=== PATIENT | male | born 1930 | race Caucasian/White ===

== ENCOUNTER 2021-03-29 22:38 | Inpatient (IN) ==
[2021-03-29] MEDS ORDERED: IOPAMIDOL 100 ML BOTTLE IV ONE (22:39)
[2021-03-29] MEDS ORDERED: 0.9 % SODIUM CHLORIDE 1,000 ML IV ONE (22:48)
[2021-03-29] MEDS ORDERED: ONDANSETRON 4 MG/2 ML VIAL IV ONE (22:49)
[2021-03-29 23:53] LABS: Basophils # (Auto) 0.01 K/mcL (0.00-0.20); Basophils % (Auto) 0.1 % (0.0-2.0); Eosinophils # (Auto) 0 K/mcL (0.00-0.70); Eosinophils % (Auto) 0 % (0.0-7.0); Hemoglobin 11.5 g/dL (13.5-16.5); Lymphocytes # (Auto) 6.77 K/mcL (1.50-4.80); Lymphocytes % (Auto) 61.3 % (15.0-49.0); Mean Cell Volume 86.3 fL (80.0-100.0); Mean Corpuscular HGB Conc 31.9 g/dL (31.0-36.0); Mean Platelet Volume 9.8 fL (7.4-10.4); Monocytes # (Auto) 0.25 K/mcL (0.10-0.90); Monocytes % (Auto) 2.3 % (1.0-12.0); Neutrophils % (Auto) 36.3 % (38.0-78.0); Platelet Count 90 K/mcL (140-440); RBC 4.17 M/mcL (4.50-5.90); Red Cell Distribution Width 17.1 % (11.5-14.5)
--- NOTE | 2021-03-30 00:12 | Emergency Department Note ---
HPI General Chief complaint: Nausea/Vomiting/Diarrhea Stated complaint: n/v Time Seen by Provider: 03/29/21 22:46 Source: patient Mode of arrival: ambulatory Limitations: no limitations History of Present Illness HPI Narrative: Narrative: 89-year-old male presents the emergency department left lower quadrant abdominal pain. Says started today and slowly worsened. 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 He states that the belly pain just seems to be getting worse. Has had diarrhea but he says he takes care of it with Imodium. He says that he has had some nausea but no vomiting. Denies any fevers. States never had this pain like this before. Describing is 8 out of 10 sharp stabbing pain nonradiating mainly in the left lower quadrant. Related Data Allergies Allergy/AdvReac Type Severity Reaction Status Date / Time No Known Drug Allergies Allergy Unverified 03/29/21 22:39 Review of Systems ROS ROS Narrative: Narrative: All systems ED: reviewed and negative except as stated. PFSH Narrative Patient History Narrative: Narrative: Medical/Surgical/Family History All Active Problems (Updated 03/30/21 @ 00:37 by Chadwick Griffiths DO) SBO (small bowel obstruction) (Acute) Social History Smoking Status: Former smoker Exam Narrative Narrative: Narrative: Vital signs noted General: Awake. Alert. No distress. Skin: Warm. Dry. No rash. HEENT: NCAT. PERRL. EOMI. No conjunctivitis. No nystagmus. No pharyngitis. Membranes moist. Neck: No PTP. Good ROM. No meningeal signs. No stridor. No thyromegaly. No JVD. Cardiovascular: RRR. No murmur. No rubs. No gallops. Respiratory: No respiratory distress. Breath sounds equal. Lungs clear. Gastrointestinal: Abdomen soft. Mild pain to the left lower quadrant on palpation. No distention. Normal bowel sounds. No palpable organomegaly or arturo s. Back: No deformity. No CVAT. Musculoskeletal: No tenderness. No swelling. No erythema. No edema. Good peripheral pulses x 4 Lymphatic: No palpable adenopathy. General Limitations: no limitations Course Vital Signs Vital signs: Vital Signs Temperature 97 F 03/29/21 22:39 Pulse Rate 10 L 03/29/21 22:39 Respiratory Rate 18 03/29/21 22:39 Blood Pressure 142/71 03/29/21 22:39 Pulse Oximetry (%) 95 03/29/21 22:39 Temperature 97 F 03/29/21 22:39 Pulse Rate 58 L 03/30/21 00:08 Respiratory Rate 18 03/29/21 22:39 Blood Pressure 122/68 03/29/21 23:01 Pulse Oximetry (%) 97 03/30/21 00:08 MDM MDM Narrative Medical decision making narrative: Narrative: Patient presents with mild left lower quadrant abdominal pain. He is currently on immunotherapy. So he is immunosuppressed. He denies any fevers or chills. Worried about possible acute pathology abdomen possibly cancer so we will going get a CAT scan of the abdomen pelvis as well as basic labs. Disposition will be pending results. General normal with a normal white blood cell count. CT scan showed multiple distended gas and fluid filled loops of small bowel in the mid to lower abdomen so there measuring up to 3-1/2 cm. This is a partial to complete small bowel obstruction the distal small bowel is decompressed. There is multiple foci of free air in the upper abdomen although the source for free air is not determined. There is a moderate amount of fecal debris in the distal colon. I did speak with the surgeon Dr. Garnica who does not think patient needs emergent surgery which I do also agree with but he does agree the patient needs to be watched in the hospital so he recommend admission starting patient on Zosyn for the possible free air in the abdomen recommended against an NG tube at this time IV fluids n.p.o. status and he will see the patient in the morning. I do think this is reasonable patient has been admitted in stable condition to Dr. Garnica to the floor. Lab Data Result diagrams: 03/29/21 22:53 03/29/21 22:53 Labs: Lab Results 03/29/21 03/29/21 Range/Units 22:53 22:53 WBC 11.0 (4.5-11.0) K/mcL RBC 4.17 L (4.50-5.90) M/mcL Hgb 11.5 L (13.5-16.5) g/dL Hct 36.0 L (41.0-55.0) % MCV 86.3 (80.0-100.0) fL MCH 27.6 (26.0-34.0) pg MCHC 31.9 (31.0-36.0) g/dL RDW 17.1 H (11.5-14.5) % Plt Count 90 L (140-440) K/mcL MPV 9.8 (7.4-10.4) fL Neut % (Auto) 36.3 L (38.0-78.0) % Lymph % (Auto) 61.3 H (15.0-49.0) % [place] % (Auto) 2.3 (1.0-12.0) % Eos % (Auto) 0 (0.0-7.0) % Baso % (Auto) 0.1 (0.0-2.0) % Lymph # (Auto) 6.77 H (1.50-4.80) K/mcL [place] # (Auto) 0.25 (0.10-0.90) K/mcL Eos # (Auto) 0 (0.00-0.70) K/mcL Baso # (Auto) 0.01 (0.00-0.20) K/mcL Absolute Neutrophils 4.01 (1.80-8.00) K/mcL Sodium 140 (133-145) mmol/L Potassium 4.1 (3.3-5.1) mmol/L Chloride 102 (96-108) mmol/L Carbon Dioxide 27 (22-30) mmol/L Anion Gap 11.0 (8.0-16.0) BUN 16 (8-23) mg/dL Creatinine 1.1 (0.7-1.2) mg/dL POC Creatinine 1.0 (0.6-1.2) mg/dL GFR Calculation 59 Glucose 184 H (70-105) mg/dL Calcium 9.0 (8.6-10.4) mg/dL Total Bilirubin 0.3 (0.1-1.0) mg/dL AST 18 (<40) U/L ALT 13 (<40) U/L Alkaline Phosphatase 102 (39-117) U/L Total Protein 6.3 (5.9-8.4) gm/dL Albumin 3.8 (3.2-5.2) gm/dL Globulin 2.5 (2.2-3.7) gm/dL Albumin/Globulin Ratio 1.5 (1.0-2.3) Discharge Plan Patient/Caregiver Discharge Instructions Pt seen by WEB ASSISTANT/PA only: No Clinical Impression: SBO (small bowel obstruction) Activity: increase activity as tolerated Patient Disposition: Xfer As Outpt/Obs ([facility]) Follow up with: Lynne Canales MD [Primary Care Provider] -
[2021-03-30 00:14] LABS: ALT/SGPT 13 U/L (<40); AST/SGOT 18 U/L (<40); Albumin 3.8 gm/dL (3.2-5.2); Albumin/Globulin Ratio 1.5 (1.0-2.3); Alkaline Phosphatase 102 U/L (39-117); Bilirubin,Total 0.3 mg/dL (0.1-1.0); Blood Urea Nitrogen 16 mg/dL (8-23); Carbon Dioxide 27 mmol/L (22-30); Chloride 102 mmol/L (96-108); Globulin 2.5 gm/dL (2.2-3.7); Glomerular Filtration Rate 59; Glucose 184 mg/dL (70-105)
[2021-03-30] MEDS ORDERED: ONDANSETRON 4 MG/2 ML VIAL IV PRN (00:29)
[2021-03-30] MEDS ORDERED: NALOXONE HCL 0.4 MG/ML VIAL IV PRN (00:29)
[2021-03-30] MEDS ORDERED: HYDROmorphone 0.5 MG/0.5 ML SYRINGE IV PRN (00:29)
[2021-03-30] MEDS: 0.9 % SODIUM CHLORIDE 1,000 ML IV SCH ×2 (01:00→12:02)
[2021-03-30] MEDS: PIPERACILLIN SODIUM/TAZOBACTAM 3.375 GM in DEXTROSE 5% IN WATER 50 ML IV SCH ×4 (01:15→17:30)
--- NOTE | 2021-03-30 02:53 | Cat Scan Report ---
CLINICAL INFORMATION: Left lower quadrant pain. History of chronic lymphocytic leukemia and diverticulitis. COMPARISON: None. TECHNIQUE: Following enteric contrast, 80 cc of Isovue-370 were injected intravenously, and 60 seconds later, 0.625 mm helical slices were obtained from the mid heart through the subtrochanteric regions. Following reconstruction, 2.5 mm sagittal, coronal and axial reformatted images were processed and reviewed at bone, lung and soft tissue windows. Five minutes later, 0.625 mm helical slices were obtained from the mid heart through the kidneys and viewed at soft tissue windows.The exam was performed using radiation dose optimization techniques including, but not limited to, automated exposure control, adjustment of the mA and/or kV according to patient size and use of iterative reconstruction technique. FINDINGS: Lung bases show mild dilatation and wall thickening of the visualized bronchi suggesting chronic bronchitis. There is scattered scarring and/or atelectasis in the. No effusions. The heart is moderately enlarged with asymmetric enlargement of the left ventricle suggesting mitral valve disease. Mitral valve is slightly thickened. Heavy calcific atherosclerotic plaque is seen in the visualized coronary arteries-particularly the LAD. Abdominal images show the liver is normal in size and configuration. The gallbladder is surgically absent. Common bile duct is mildly dilated-14 mm: no stone or other cause for biliary obstruction. Moderate gas in the nondependent left hepatic ducts likely related to prior papillotomy. Pancreatic divisum noted with mild dilatation of both Wirsungs and Santorini duct each-approximately 9 mm. The pancreatic parenchyma is unremarkable. There is 11 mm simple cyst inferior pole left kidney. No significant renal abnormality. Mild bilateral adrenal hyperplasia noted. The spleen is unremarkable. The aorta is normal diameter with scattered atherosclerotic plaque. Aortic branches contain plaque, but no stenoses. Pelvic images show TURP changes in the prostate which is, otherwise, normal. The urinary bladder is mildly distended. The stomach, duodenum and jejunum are moderately dilated to a transition point in the mid abdomen (coronal image 53 and axial image 129). There appear to be adhesions or stricture in this region. The distal small bowel and large bowel are moderately decompressed. Within the dilated jejunum, there is moderate pneumatosis with small amounts of free intraperitoneal air in the epigastric and peripancreatic region. Findings are compatible with grade mid small bowel obstruction and subsequent rupture. Small amount of free fluid is also noted in the perisplenic and pelvic region. Small recurrent left internal hernia noted. Right inguinal herniorrhaphy changes appreciated. Bone windows show degeneration lumbar spine no focal osseous lesions IMPRESSION: 1. High-grade mid jejunal obstruction with pneumatosis scattered within atkins of the jejunal loops. Small amount of free air in the epigastric and peripancreatic regions are compatible with small bowel rupture. Small amount of free fluid also noted. 2. Moderate dilatation of the intrahepatic and common bile ducts and also pancreatic ducts suggesting post cholecystectomy papillary stenosis. 3. Small left inguinal hernia. Right inguinal herniorrhaphy. 4. Moderate cardiomegaly with asymmetric enlargement of the left atrium suggesting mitral stenosis. This would be better evaluated with echocardiography 5. Mild bilateral adrenal hyperplasia Interpreted and Authenticated by: Henrik Mohamud 03/30/21
[2021-03-30 04:33] LABS: Appearance,Urine CLEAR (Clear); Bilirubin,Urine Negative (Negative); Color,Urine YELLOW; Culture Indicated,Urine No; Glucose,Urine (UA) 150 mg/dL (Negative); Ketones,Urine Negative (Negative); Leukocyte Esterase,Urine Negative /ug (Negative); Nitrate,Urine Negative (Negative); Protein,Urine Negative (Negative); Specific Gravity,Urine 1.021 (1.000-1.035); Urine Blood Negative (Negative); Urobilinogen,Urine Negative
[2021-03-30] MEDS: 0.9 % SODIUM CHLORIDE 10 ML SYRINGE IV SCH ×3 (05:13→21:37)
[2021-03-30] MEDS: DOCUSATE SODIUM 100 MG CAPSULE PO SCH ×2 (07:43→21:37)
[2021-03-30] MEDS ORDERED: PROMETHAZINE 25 MG/ML VIAL IV PRN (07:53)
[2021-03-30 08:22] LABS: POC INR 1.8 (0.8-1.2); POC Pro Time 21.1 sec (11.9-14.5)
[2021-03-30 08:41] LABS: Basophils # (Auto) 0.02 K/mcL (0.00-0.20); Basophils % (Auto) 0.1 % (0.0-2.0); Eosinophils # (Auto) 0 K/mcL (0.00-0.70); Eosinophils % (Auto) 0 % (0.0-7.0); Hematocrit 37.2 % (41.0-55.0); Hemoglobin 11.8 g/dL (13.5-16.5); Lymphocytes # (Auto) 7.57 K/mcL (1.50-4.80); Lymphocytes % (Auto) 39.7 % (15.0-49.0); Mean Cell Volume 87.3 fL (80.0-100.0); Mean Corpuscular HGB Conc 31.7 g/dL (31.0-36.0); Mean Platelet Volume 9.5 fL (7.4-10.4); Monocytes # (Auto) 0.97 K/mcL (0.10-0.90); Monocytes % (Auto) 5.1 % (1.0-12.0); Neutrophils % (Auto) 55.1 % (38.0-78.0); Platelet Count 105 K/mcL (140-440); RBC 4.26 M/mcL (4.50-5.90); Red Cell Distribution Width 17.5 % (11.5-14.5); WBC 19.1 K/mcL (4.5-11.0)
[2021-03-30] MEDS ORDERED: 0.9 % SODIUM CHLORIDE 250 ML IV SCH (09:00)
--- NOTE | 2021-03-30 09:38 | General Surg History&Physical ---
HPI History of Present Illness Patient information: Note initiated : 03/30/21 at 9:21 am Service Date, if different from initiated Date: [] Patient: George Valdovinos a 89 y/o M admitted on 03/30/21 for n/v. Chief Complaint: [] History of present illness: Mr. Valdovinos is a 89 year old M admitted earlier this morning for bowel obstruction. The patient has history of acute abdominal pain in his mid abdomen about 6 PM yesterday. This was followed by episodes of nausea and finally multiple episodes of vomiting. He has brown emesis. He states that he has been passing flatus and he had 2 bowel movements yesterday. He has not had similar episodes in the past. Previous abdominal operations include cholecystectomy, exploratory laparotomy with findings of diverticulitis significant output and appendectomy. CT scan shows dilated loops of small b owel extending to the distal bowel with some pneumatosis and free air. He has been afebrile with stable vital signs. Patient is admitted and will be further evaluated with plans for potential exploratory laparotomy. Constitutional Constitutional: Present anorexia, fatigue, lethargy, malaise, weakness and weigh t loss EENT Eyes: Present blurry vision and other visual disturbances Ears: Present decreased hearing Nose, mouth and throat: Present abnormal hearing, dry mouth and hoarseness Cardiovascular Cardiovascular: Present irregular heart rhythm and palpatations; Absent chest pain with activity and diaphoresis Respiratory Respiratory: Absent cough and wheezing Gastrointestinal Gastrointestinal: Present abdominal pain, belching, change in stool character, cramping, diarrhea, nausea and vomiting Genitourinary Genitourinary: change in urinary stream, urinary frequency, urinary hesitancy, urinary incontinence and urinary urgency Musculoskeletal Musculoskeletal: Present abnormal gait, arthralgias, muscle weakness, myalgias and numbness Integumentary Integumentary: Present unusual bruising (Patient is on long-term warfarin) Neurological Neurological: Present abnormal gait, abnormal hearing, focal weakness, paresthesias and weakness Psychiatric Psychiatric: Present abnormal sleep pattern, confusion and difficulty concentrating Endocrine Endocrine: Present fatigue and palpitations Hematologic/Lymphatic Hematologic/Lymphatic: Present easy bleeding, easy bruising and lymphadenopathy Allergic/Immunologic Allergic/Immunologic: Absent tongue swelling, throat swelling, itchy eyes, uticaria, wheezing and lip swelling PFSH PFSH All Active Problems (Updated 03/30/21 @ 09:37 by Yogesh Garnica MD) Pneumatosis intestinalis (Acute) Degenerative arthritis (Acute) Chronic atrial fibrillation (Acute) SBO (small bowel obstruction) (Acute) Surgical History (Updated 03/30/21 @ 09:48 by Yogesh Garnica MD) H/O arthroscopy of left knee H/O exploratory laparotomy History of cholecystectomy History of total knee arthroplasty Hx of appendectomy MEDS/ALLERGIES Home Medications and Allergies Home Medications Medication Instructions Recorded Confirmed Type acetaminophen [Tylenol] 650 mg PO DAILY PRN 03/30/21 03/30/21 History donepezil [Aricept] 10 mg PO QDAY 03/30/21 03/30/21 History iron-vitamin B complex with C 1 tab PO DAILY 03/30/21 03/30/21 History [Daily Iron Complete Senior] memantine [Namenda] 10 mg PO BID 03/30/21 03/30/21 History tramadol [Ultram] 50 mg PO DAILY PRN 03/30/21 03/30/21 History vitamin B complex [B 1 tab PO QDAY 03/30/21 03/30/21 History Complex-Vitamin B12] Allergies Allergy/AdvReac Type Severity Reaction Status Date / Time No Known Drug Allergies Allergy Unverified 03/29/21 22:39 Physical Examination Vital Signs Vital signs: Temp Pulse Resp BP Pulse Ox 98.4 F 53 L 18 129/70 96 03/30/21 08:00 03/30/21 08:00 03/30/21 08:00 03/30/21 08:00 03/30/21 08:00 General physical appearance General physical exam: moderate distress, moderate pain, cachectic and chronically ill Eyes Eye exam: PERRL and normal ocular movement ENT ENT exam: decreased hearing and poor assisted Head Head exam IM: Present atraumatic, normal inspection and normocephalic Neck Neck exam: no masses, no bruits, trachea midline, no lymphadenopathy and no venous distension Cardiovascular Cardiovascular exam IM: Present normal rate and rhythm, irregular rhythm, +S1, +S2 and tachycardia; Absent JVD Respiratory Respiratory exam: normal expansion, normal respiratory effort and clear to auscultation Abdomen Abdomen: Present tender and bowel sounds (Active bowel sounds) Integumentary Integumentary: Present other (Bruises of upper extremities) Neurologic Neurologic: Present normal coordination and normal sensation Musculoskeletal Musculoskeletal: Present other (Altered gait due to weakness) Psychiatric Psychiatric: Present oriented to time, oriented to person, speech is normal and memory intact (Altered memory); Absent oriented to place Results Labs Result diagrams: 03/30/21 08:09 03/29/21 22:53 Labs: Abnormal lab results 03/29/21 03/29/21 03/30/21 Range/Units 22:53 22:53 03:30 WBC (4.5-11.0) K/mcL RBC 4.17 L (4.50-5.90) M/mcL Hgb 11.5 L (13.5-16.5) g/dL Hct 36.0 L (41.0-55.0) % RDW 17.1 H (11.5-14.5) % Plt Count 90 L (140-440) K/mcL Neut % (Auto) 36.3 L (38.0-78.0) % Lymph % (Auto) 61.3 H (15.0-49.0) % Lymph # (Auto) 6.77 H (1.50-4.80) K/mcL [place] # (Auto) (0.10-0.90) K/mcL Absolute Neutrophils (1.80-8.00) K/mcL POC PT (11.9-14.5) sec POC INR (0.8-1.2) Glucose 184 H (70-105) mg/dL Urine Glucose (UA) 150 A (Negative) mg/dL 03/30/21 03/30/21 Range/Units 08:09 08:09 WBC 19.1 H (4.5-11.0) K/mcL RBC 4.26 L (4.50-5.90) M/mcL Hgb 11.8 L (13.5-16.5) g/dL Hct 37.2 L (41.0-55.0) % RDW 17.5 H (11.5-14.5) % Plt Count 105 L (140-440) K/mcL Neut % (Auto) (38.0-78.0) % Lymph % (Auto) (15.0-49.0) % Lymph # (Auto) 7.57 H (1.50-4.80) K/mcL [place] # (Auto) 0.97 H (0.10-0.90) K/mcL Absolute Neutrophils 10.52 H (1.80-8.00) K/mcL POC PT 21.1 H (11.9-14.5) sec POC INR 1.8 H (0.8-1.2) Glucose (70-105) mg/dL Urine Glucose (UA) (Negative) mg/dL Diabetes panel 03/29/21 Range/Units 22:53 Sodium 140 (133-145) mmol/L Potassium 4.1 (3.3-5.1) mmol/L Chloride 102 (96-108) mmol/L Carbon Dioxide 27 (22-30) mmol/L BUN 16 (8-23) mg/dL Creatinine 1.1 (0.7-1.2) mg/dL Glucose 184 H (70-105) mg/dL Calcium 9.0 (8.6-10.4) mg/dL AST 18 (<40) U/L ALT 13 (<40) U/L Alkaline Phosphatase 102 (39-117) U/L Total Protein 6.3 (5.9-8.4) gm/dL Albumin 3.8 (3.2-5.2) gm/dL Calcium panel 03/29/21 Range/Units 22:53 Calcium 9.0 (8.6-10.4) mg/dL Albumin 3.8 (3.2-5.2) gm/dL Pituitary panel 03/29/21 Range/Units 22:53 Sodium 140 (133-145) mmol/L Potassium 4.1 (3.3-5.1) mmol/L Chloride 102 (96-108) mmol/L Carbon Dioxide 27 (22-30) mmol/L BUN 16 (8-23) mg/dL Creatinine 1.1 (0.7-1.2) mg/dL Glucose 184 H (70-105) mg/dL Calcium 9.0 (8.6-10.4) mg/dL Adrenal panel 03/29/21 Range/Units 22:53 Sodium 140 (133-145) mmol/L Potassium 4.1 (3.3-5.1) mmol/L Chloride 102 (96-108) mmol/L Carbon Dioxide 27 (22-30) mmol/L BUN 16 (8-23) mg/dL Creatinine 1.1 (0.7-1.2) mg/dL Glucose 184 H (70-105) mg/dL Calcium 9.0 (8.6-10.4) mg/dL Total Bilirubin 0.3 (0.1-1.0) mg/dL AST 18 (<40) U/L ALT 13 (<40) U/L Alkaline Phosphatase 102 (39-117) U/L Total Protein 6.3 (5.9-8.4) gm/dL Albumin 3.8 (3.2-5.2) gm/dL All other labs normal. A/P Assessment and plan (1) SBO (small bowel obstruction): Status: Acute (2) Chronic atrial fibrillation: Status: Acute (3) Pneumatosis intestinalis: Status: Acute (4) Degenerative arthritis: Status: Acute Narrative A/P Narrative: Patient is counseled for possible exploratory laparotomy. He will receive 2 units of fresh frozen plasma preprocedure He has been started on Zosyn for antibiotic coverage Nasogastric tube will be inserted Time Spent With Patient Time: Total time spent is greater than 50% in coordination of care (as documented) at patient's floor/unit and/or counseling patient:
[2021-03-30] MEDS ORDERED: ACETAMINOPHEN 1,000 MG/100 ML BAG IV PRN (19:53)
[2021-03-30] MEDS: SENNOSIDES 1 TABLET PO SCH (21:37)
[2021-03-30] MEDS ORDERED: ACETAMINOPHEN 1,000 MG/100 ML BAG IV ONE (22:09)
[2021-03-31] MEDS: 0.9 % SODIUM CHLORIDE 1,000 ML IV SCH ×3 (04:25→15:57)
[2021-03-31] MEDS: PIPERACILLIN SODIUM/TAZOBACTAM 3.375 GM in DEXTROSE 5% IN WATER 50 ML IV SCH ×5 (05:47→23:56)
[2021-03-31] MEDS: 0.9 % SODIUM CHLORIDE 10 ML SYRINGE IV SCH ×3 (05:47→21:13)
--- NOTE | 2021-03-31 06:42 | XRay Report ---
CLINICAL INFORMATION: FOLLOW -UP OF SMALL BOWEL OBSTRUCTION COMPARISON: Abdomen and pelvic CT 03/29/2021 FINDINGS: Multiple loops of small bowel and the left upper quadrant are mildly dilated with air-fluid levels. Only minimal stool and gas gas seen in the distal small bowel and large bowel Pneumatosis seen within the wall of many small bowel loops-as previously seen. A small amount of free air is seen in the right subdiaphragmatic region. IMPRESSION: Surgical status the patient is unknown. Multiple loops of small bowel present in the left upper quadrant with air-fluid levels with relative decompression of the distal small bowel and colon. Patient may have persistent small bowel obstruction or this could represent a postoperative atypical ileus. Small amount of right subdiaphragmatic free air noted may be postsurgical. Interpreted and Authenticated by: Henrik Mohamud 03/31/21
[2021-03-31] MEDS: DOCUSATE SODIUM 100 MG CAPSULE PO SCH ×2 (08:21→21:13)
[2021-03-31 08:44] LABS: Basophils # (Auto) 0.03 K/mcL (0.00-0.20); Basophils % (Auto) 0.2 % (0.0-2.0); Eosinophils # (Auto) 0 K/mcL (0.00-0.70); Eosinophils % (Auto) 0 % (0.0-7.0); Hemoglobin 9.8 g/dL (13.5-16.5); Lymphocytes # (Auto) 13.94 K/mcL (1.50-4.80); Lymphocytes % (Auto) 71.4 % (15.0-49.0); Mean Cell Volume 88.1 fL (80.0-100.0); Mean Corpuscular HGB Conc 31.6 g/dL (31.0-36.0); Mean Platelet Volume 10.8 fL (7.4-10.4); Monocytes # (Auto) 0.48 K/mcL (0.10-0.90); Monocytes % (Auto) 2.5 % (1.0-12.0); Neutrophils % (Auto) 25.9 % (38.0-78.0); Platelet Count 60 K/mcL (140-440); RBC 3.52 M/mcL (4.50-5.90); Red Cell Distribution Width 17.4 % (11.5-14.5); WBC 19.5 K/mcL (4.5-11.0)
[2021-03-31 08:46] LABS: ALT/SGPT 9 U/L (<40); AST/SGOT 15 U/L (<40); Albumin 3.1 gm/dL (3.2-5.2); Albumin/Globulin Ratio 1.8 (1.0-2.3); Alkaline Phosphatase 60 U/L (39-117); Bilirubin,Direct 0.2 mg/dL (<0.3); Bilirubin,Total 0.5 mg/dL (0.1-1.0); Blood Urea Nitrogen 24 mg/dL (8-23); Calcium 7.4 mg/dL (8.6-10.4); Carbon Dioxide 29 mmol/L (22-30); Chloride 108 mmol/L (96-108); Globulin 1.7 gm/dL (2.2-3.7); Glomerular Filtration Rate 59; Glucose 95 mg/dL (70-105); Lactate Dehydrogenase 169 U/L (135-225); Phosphorous 3.3 mg/dL (2.5-4.5); Triglycerides 75 mg/dL (<150); Uric Acid 3.6 mg/dL (2.5-8.0)
--- NOTE | 2021-03-31 13:14 | General Surgery Progress Note ---
SUBJECTIVE Subjective Patient information: Note initiated : 03/31/21 at 1:07 pm Service Date, if different from initiated Date: [] Patient: George Valdovinos 89 y/o M admitted on 03/30/21 for n/v. Chief Complaint: [] Principal diagnosis: Partial small bowel obstruction Interval history: Patient states that he is feeling much better. He denies having any abdominal pain. He has had 3 large liquid bowel movements starting last evening and this morning. His abdomen is totally flat and soft. He does not have any tenderness. He has normal active bowel sounds. Morning x-rays still show small amount of free air and some residual pneumatosis intestinalis however in view of his benign abdomen I think that this is due to benign pneumatosis rather than pathologic pneumatosis from major obstruction orl intestinal wall infection or ischemia. Constitutional Vitals: Vital Signs Temp Pulse Resp BP Pulse Ox 98.9 F 65 18 116/59 99 03/31/21 11:49 03/31/21 11:49 03/31/21 11:49 03/31/21 11:49 03/31/21 11:49 Period Temp Pulse Resp BP Sys/Gerardo Pulse Ox Last 24 Hr 98.2 F-102.6 F 65-88 16-20 103-116/49-63 91-99 Intake and Output 03/30/21 03/31/21 03/31/21 21:59 05:59 13:59 Intake Total 753 1150 100 Output Total 400 Balance 353 1150 100 Weight 156 lb 12.8 oz Intake & Output: Intake & Output 03/30/21 03/31/21 03/31/21 21:59 05:59 13:59 Intake Total 753 1150 100 Output Total 400 Balance 353 1150 100 Weight 156 lb 12.8 oz Intake: IV 169 1150 100 Sodium Chloride 0.9% 1,000 ml @ 1000 100 mls/hr IV .Q10H JENNIFER Rx#: [id number] Sodium Chloride 0.9% 250 ml @ 119 20 mls/hr IV .[id number] JENNIFER Rx#: [id number] Zosyn 3.375 gm In Dextrose 5% 50 50 100 in Water 50 ml @ 100 mls/hr IV Q6H JENNIFER Rx#:[id number] Blood Product 584 Output: Void Amount 400 Other: Urine Appearance Clear Urine Color Bright Yellow Urine Odor Normal Stool Size Moderate Moderate Stool Color Brown Brown Stool Consistency Liquid Liquid Loose Loose # of times incontinent of 1 1 Bowels Head Head exam: Present atraumatic, normal inspection and normocephalic Eye Eye exam: Present EOMI Pupils: Present normal accommodation and PERRL ENT ENT exam: Present mucous membranes moist and normal oropharynx Neck Neck exam: Present full ROM and normal inspection; Absent tenderness Respiratory Respiratory exam: Present normal respiratory exam and CTAB; Absent rales, rhonch i and wheezes Cardiovascular Cardiovascular exam: Present normal rate and rhythm, RRR, +S1 and +S2; Absent JVD GI/Abdominal GI/Abdominal exam: Present normal bowel sounds and soft; Absent distended, guarding and tenderness Additional comments: Abdominal exam is totally benign; he has good active bowel sounds and no distention. His abdomen is actually scaphoid and is soft and pliable without any distention or tenderness in any portion of the abdomen. There is no mass felt. Extremities Exam Extremities exam: Present full ROM and neurovascular intact Back Exam Back exam: Present full ROM and normal inspection Neurological Exam Neurological exam: Present alert, motor sensory deficit and normal gait Psychiatric Psychiatric exam: Present normal affect and normal mood Skin Skin exam: Absent erythema A/P Assessment and plan (1) SBO (small bowel obstruction): Status: Acute (2) Chronic atrial fibrillation: Status: Acute (3) Pneumatosis intestinalis: Status: Acute Narrative A/P Narrative: The patient has started having regular bowel movements. His abdomen is totally benign. The dilated gas appears to be in the colon. He still has a small amount of free air but he has a clinically totally benign abdomen. The elevated white blood count is possibly due to his CLL. I will continue him on antibiotics and will start to advance his diet. Follow-up abdominal x-ray will be done in the morning. Time Spent With Patient Time: Total time spent is greater than 50% in coordination of care (as documented) at patient's floor/unit and/or counseling patient:
[2021-03-31] MEDS: SENNOSIDES 1 TABLET PO SCH (21:13)
[2021-04-01] MEDS: 0.9 % SODIUM CHLORIDE 1,000 ML IV SCH ×3 (02:58→23:45)
[2021-04-01] MEDS: PIPERACILLIN SODIUM/TAZOBACTAM 3.375 GM in DEXTROSE 5% IN WATER 50 ML IV SCH ×4 (05:36→23:45)
[2021-04-01] MEDS: 0.9 % SODIUM CHLORIDE 10 ML SYRINGE IV SCH ×3 (05:39→20:33)
[2021-04-01] MEDS: DOCUSATE SODIUM 100 MG CAPSULE PO SCH ×2 (07:48→20:33)
--- NOTE | 2021-04-01 12:52 | General Surgery Progress Note ---
SUBJECTIVE Subjective Patient information: Note initiated : 04/01/21 at 12:51 pm Service Date, if different from initiated Date: [] Patient: George Valdovinos 89 y/o M admitted on 03/30/21 for n/v. Chief Complaint: [] Principal diagnosis: Partial small bowel obstruction Interval history: Patient is stable and improved. He denies nausea or abdominal pain. He has had flatus and had a small bowel movement this morning. His abdomen revealed remains soft and flat. He has been afebrile for the past 24 hours. Constitutional Vitals: Vital Signs Temp Pulse Resp BP Pulse Ox 98.1 F 69 14 111/61 97 04/01/21 11:10 04/01/21 11:10 04/01/21 11:10 04/01/21 11:10 04/01/21 11:10 Period Temp Pulse Resp BP Sys/Gerardo Pulse Ox Last 24 Hr 98.1 F-99.1 F 54-74 14-19 90-118/52-68 92-97 Intake and Output 03/31/21 04/01/21 04/01/21 21:59 05:59 13:59 Intake Total 1530 1300 100 Output Total 951 275 1 Balance 579 1025 99 Weight 169 lb Intake & Output: Intake & Output 03/31/21 04/01/21 04/01/21 21:59 05:59 13:59 Intake Total 1530 1300 100 Output Total 951 275 1 Balance 579 1025 99 Weight 169 lb Intake: IV 1050 1050 100 Sodium Chloride 0.9% 1,000 ml @ 1000 1000 100 mls/hr IV .Q10H JENNIFER Rx#: [id number] Zosyn 3.375 gm In Dextrose 5% 50 50 100 in Water 50 ml @ 100 mls/hr IV Q6H JENNIFER Rx#:[id number] Oral 480 250 Output: Void Amount 950 275 # of times incontinent of urine 1 1 Other: Meal Dinner Breakfast Percent of Meal Consumed 100% 100% Feeding Ability Independent Independent Urine Appearance Clear Clear Urine Color Dark Yellow Dark Yellow Urine Odor Normal Stool Size Smear Moderate Stool Color Green Green Stool Consistency Loose Loose # Voids 1 # Bowel Movements 1 # of times incontinent of 1 1 Bowels Head Head exam: Present atraumatic, normal inspection and normocephalic Eye Eye exam: Present EOMI Pupils: Present normal accommodation and PERRL ENT ENT exam: Present mucous membranes moist and normal oropharynx Neck Neck exam: Present full ROM and normal inspection; Absent tenderness Respiratory Respiratory exam: Present normal respiratory exam and CTAB; Absent rales, rhonchi and wheezes Cardiovascular Cardiovascular exam: Present normal rate and rhythm, RRR, +S1 and +S2; Absent JVD GI/Abdominal GI/Abdominal exam: Present normal bowel sounds and soft; Absent distended, guarding and tenderness Additional comments: Abdominal exam is totally benign; he has good active bowel sounds and no distention. His abdomen is actually scaphoid and is soft and pliable without any distention or tenderness in any portion of the abdomen. There is no mass felt. Extremities Exam Extremities exam: Present full ROM and neurovascular intact Back Exam Back exam: Present normal inspection Neurological Exam Neurological exam: Present alert and oriented X3 Skin Skin exam: Present intact and warm A/P Assessment and plan (1) SBO (small bowel obstruction): Status: Acute (2) Chronic atrial fibrillation: Status: Acute (3) Degenerative arthritis: Status: Acute (4) Pneumatosis intestinalis: Status: Acute Narrative A/P Narrative: Advance to full liquid diet Check CBC, IP, abdominal x-rays in the morning Continue antibiotic therapy Time Spent With Patient Time: Total time spent is greater than 50% in coordination of care (as documented) at patient's floor/unit and/or counseling patient:
[2021-04-01] MEDS: SENNOSIDES 1 TABLET PO SCH (20:33)
[2021-04-02] MEDS: 0.9 % SODIUM CHLORIDE 10 ML SYRINGE IV SCH ×3 (04:11→20:19)
[2021-04-02] MEDS: PIPERACILLIN SODIUM/TAZOBACTAM 3.375 GM in DEXTROSE 5% IN WATER 50 ML IV SCH ×4 (06:17→23:39)
[2021-04-02] MEDS: DOCUSATE SODIUM 100 MG CAPSULE PO SCH ×2 (07:49→20:24)
[2021-04-02] MEDS: 0.9 % SODIUM CHLORIDE 1,000 ML IV SCH ×2 (07:49→17:30)
[2021-04-02 08:14] LABS: ALT/SGPT 8 U/L (<40); AST/SGOT 18 U/L (<40); Albumin 2.8 gm/dL (3.2-5.2); Albumin/Globulin Ratio 1.3 (1.0-2.3); Alkaline Phosphatase 52 U/L (39-117); Bilirubin,Direct < 0.2 mg/dL (0-0.3); Bilirubin,Total 0.5 mg/dL (0.1-1.0); Blood Urea Nitrogen 7 mg/dL (8-23); Calcium 7.6 mg/dL (8.6-10.4); Carbon Dioxide 25 mmol/L (22-30); Chloride 105 mmol/L (96-108); Globulin 2.1 gm/dL (2.2-3.7); Glomerular Filtration Rate 67; Glucose 86 mg/dL (70-105); Lactate Dehydrogenase 196 U/L (135-225); Phosphorous 1.5 mg/dL (2.5-4.5); Triglycerides 70 mg/dL (<150); Uric Acid 2.7 mg/dL (2.5-8.0)
[2021-04-02 09:27] LABS: Hematocrit 33.4 % (41.0-55.0); Hemoglobin 10.6 g/dL (13.5-16.5); Mean Cell Volume 86.8 fL (80.0-100.0); Mean Corpuscular HGB Conc 31.7 g/dL (31.0-36.0); Mean Platelet Volume 10.4 fL (7.4-10.4); Platelet Count 57 K/mcL (140-440); RBC 3.85 M/mcL (4.50-5.90); Red Cell Distribution Width 16.4 % (11.5-14.5)
[2021-04-02 09:28] LABS: WBC 9.5 K/mcL (4.5-11.0)
[2021-04-02 09:34] LABS: Hematocrit 33.3 % (41.0-55.0); Hemoglobin 10.6 g/dL (13.5-16.5); Mean Cell Volume 86.5 fL (80.0-100.0); Mean Corpuscular HGB Conc 31.8 g/dL (31.0-36.0); Mean Platelet Volume 10.3 fL (7.4-10.4); Platelet Count 55 K/mcL (140-440); RBC 3.85 M/mcL (4.50-5.90); Red Cell Distribution Width 16.3 % (11.5-14.5); WBC 8.3 K/mcL (4.5-11.0)
--- NOTE | 2021-04-02 13:00 | General Surgery Progress Note ---
SUBJECTIVE Subjective Patient information: Note initiated : 04/02/21 at 12:55 pm Service Date, if different from initiated Date: [] Patient: George Valdovinos 89 y/o M admitted on 03/30/21 for n/v. Chief Complaint: [] Principal diagnosis: Partial small bowel obstruction Interval history: Patient is significantly improved. He has been passing gas and has had 2 small bowel movements since yesterday. He denies abdominal pain and his abdomen remains soft and nondistended. White blood count 8.3, hemoglobin 10.6, hematocrit 33.3, potassium 3.2, BUN 7, creatinine 1, phosphorus 1.5. Constitutional Vitals: Vital Signs Temp Pulse Resp BP Pulse Ox 97.8 F 72 16 116/61 97 04/02/21 12:30 04/02/21 12:30 04/02/21 12:30 04/02/21 12:30 04/02/21 12:30 Period Temp Pulse Resp BP Sys/Gerardo Pulse Ox Last 24 Hr 97.4 F-98.6 F 62-77 15-18 105-138/57-72 96-98 Intake and Output 04/01/21 04/02/21 04/02/21 21:59 05:59 13:59 Intake Total 930 1981 50 Output Total 600 500 750 Balance 330 1482 -700 Weight 169 lb Intake & Output: Intake & Output 04/01/21 04/02/21 04/02/21 21:59 05:59 13:59 Intake Total 930 1981 50 Output Total 600 500 750 Balance 330 1482 -700 Weight 169 lb Intake: IV 50 982 50 Sodium Chloride 0.9% 1,000 ml @ 932 100 mls/hr IV .Q10H JENNIFER Rx#: [id number] Zosyn 3.375 gm In Dextrose 5% 50 50 50 in Water 50 ml @ 100 mls/hr IV Q6H JENNIFER Rx#:[id number] Oral 880 1000 Output: Void Amount 600 500 750 Other: Meal Dinner Breakfast Percent of Meal Consumed 100% 100% Feeding Ability Independent Independent Urine Appearance Clear Clear Clear Urine Color Bright Yellow Bright Yellow Bright Yellow Urine Odor Normal Normal Stool Size Small Stool Color Green Brown Black Green Stool Consistency Liquid Watery Loose # Voids 1 # Bowel Movements 1 1 1 Head Head exam: Present atraumatic, normal inspection and normocephalic Eye Eye exam: Present EOMI Pupils: Present normal accommodation and PERRL ENT ENT exam: Present mucous membranes moist and normal oropharynx Neck Neck exam: Present full ROM and normal inspection; Absent tenderness Respiratory Respiratory exam: Present normal respiratory exam and CTAB; Absent rales, rhonchi and wheezes Cardiovascular Cardiovascular exam: Present normal rate and rhythm, RRR, +S1 and +S2; Absent JVD GI/Abdominal GI/Abdominal exam: Present normal bowel sounds and soft; Absent distended, guarding and tenderness Additional comments: Abdominal exam is totally benign; he has good active bowel sounds and no distention. His abdomen is actually scaphoid and is soft and pliable without any distention or tenderness in any portion of the abdomen. There is no mass felt. Extremities Exam Extremities exam: Present full ROM and neurovascular intact Neurological Exam Neurological exam: Present alert and oriented X3 Psychiatric Psychiatric exam: Present normal affect and normal mood Skin Skin exam: Present intact and warm A/P Assessment and plan (1) SBO (small bowel obstruction): Status: Acute (2) Pneumatosis intestinalis: Status: Acute (3) Chronic atrial fibrillation: Status: Acute (4) Degenerative arthritis: Status: Acute Narrative A/P Narrative: Patient is clinically improved. Small bowel obstruction has resolved. Potassium phosphate 40 mEq rider x2 Magnesium rider 4 g x 1 MiraLAX 17 g in 8 ounces of liquid 4 times daily Have patient out of bed to ambulate and to be in chair Probable discharge in the morning Time Spent With Patient Time: Total time spent is greater than 50% in coordination of care (as doc umented) at patient's floor/unit and/or counseling patient:
--- NOTE | 2021-04-02 13:35 | XRay Report ---
CLINICAL INFORMATION: FOLLOW -UP OF SMALL BOWEL OBSTRUCTION COMPARISON: 03/31/2021 FINDINGS: Multiple loops of small and large bowel which are borderline dilated and demonstrate air-fluid levels in the upright film. More gas is seen in the distal small bowel and colon compared to exam two days ago. Mild pneumatosis scattered within the small bowel wall in the central abdomen. Small residual free air appreciated centrally IMPRESSION: Nonspecific stool gas pattern: This represents either resolving distal small bowel obstruction or atypical ileus. Improvement from exam two days prior. Interpreted and Authenticated by: Henrik Mohamud 04/02/21
[2021-04-02] MEDS: POTASSIUM PHOSPHATE 40 MEQ in DEXTROSE 5% IN WATER 500 ML IV SCH ×2 (13:54→20:15)
[2021-04-02] MEDS: POLYETHYLENE GLYCOL 3350 17 GM PACKET PO SCH ×2 (13:58→20:18)
[2021-04-02] MEDS ORDERED: MAGNESIUM SULFATE 4 GM/100 ML BAG IV ONE (14:00)
[2021-04-02] MEDS: SENNOSIDES 1 TABLET PO SCH (20:24)
[2021-04-03] MEDS: 0.9 % SODIUM CHLORIDE 1,000 ML IV SCH ×3 (03:15→23:34)
[2021-04-03] MEDS: POLYETHYLENE GLYCOL 3350 17 GM PACKET PO SCH ×2 (03:26→08:43)
[2021-04-03] MEDS: 0.9 % SODIUM CHLORIDE 10 ML SYRINGE IV SCH ×3 (05:57→22:05)
[2021-04-03] MEDS: PIPERACILLIN SODIUM/TAZOBACTAM 3.375 GM in DEXTROSE 5% IN WATER 50 ML IV SCH ×3 (06:20→17:49)
[2021-04-03 06:49] LABS: Basophils # (Auto) 0.03 K/mcL (0.00-0.20); Basophils % (Auto) 0.5 % (0.0-2.0); Eosinophils # (Auto) 0.08 K/mcL (0.00-0.70); Eosinophils % (Auto) 1.3 % (0.0-7.0); Hematocrit 43.9 % (41.0-55.0); Hemoglobin 14.8 g/dL (13.5-16.5); Lymphocytes # (Auto) 1.56 K/mcL (1.50-4.80); Lymphocytes % (Auto) 24.5 % (15.0-49.0); Mean Cell Volume 90.7 fL (80.0-100.0); Mean Corpuscular HGB Conc 33.7 g/dL (31.0-36.0); Monocytes # (Auto) 0.53 K/mcL (0.10-0.90); Monocytes % (Auto) 8.3 % (1.0-12.0); Neutrophils % (Auto) 65.4 % (38.0-78.0); Platelet Count 193 K/mcL (140-440); RBC 4.84 M/mcL (4.50-5.90); Red Cell Distribution Width 12.1 % (11.5-14.5); WBC 6.4 K/mcL (4.5-11.0)
[2021-04-03 07:00] LABS: ALT/SGPT 8 U/L (<40); AST/SGOT 25 U/L (<40); Albumin 2.9 gm/dL (3.2-5.2); Albumin/Globulin Ratio 1.3 (1.0-2.3); Alkaline Phosphatase 57 U/L (39-117); Bilirubin,Direct < 0.2 mg/dL (0-0.3); Bilirubin,Total 0.4 mg/dL (0.1-1.0); Blood Urea Nitrogen 8 mg/dL (8-23); Calcium 7.6 mg/dL (8.6-10.4); Carbon Dioxide 24 mmol/L (22-30); Chloride 102 mmol/L (96-108); Globulin 2.2 gm/dL (2.2-3.7); Glomerular Filtration Rate 59; Glucose 101 mg/dL (70-105); Lactate Dehydrogenase 395 U/L (135-225); Triglycerides 85 mg/dL (<150); Uric Acid 2.6 mg/dL (2.5-8.0)
[2021-04-03] MEDS: DOCUSATE SODIUM 100 MG CAPSULE PO SCH ×2 (08:20→20:14)
--- NOTE | 2021-04-03 10:26 | XRay Report ---
CLINICAL INFORMATION: Follow-up of small bowel obstruction COMPARISON: 04/02/2021 FINDINGS: The stomach and multiple loops of small bowel in the left upper quadrant are mildly dilated containing multiple air-fluid levels. The distal small bowel and colon are decompressed. No free air. IMPRESSION: Partial small bowel obstruction pattern mid jejunum. Interpreted and Authenticated by: Henrik Mohamud 04/03/21
--- NOTE | 2021-04-03 13:45 | General Surgery Progress Note ---
SUBJECTIVE Subjective Patient information: Note initiated : 04/03/21 at 1:42 pm Service Date, if different from initiated Date: [] Patient: George Valdovinos 89 y/o M admitted on 03/30/21 for n/v. Chief Complaint: [] Principal diagnosis: Partial small bowel obstruction Interval history: Patient continues to improve. He had more bowel movements last night and has passed flatus. Abdominal x-rays this morning still shows a s ignificant amount of gas in his small bowel and colon. He does not have any abdominal pain. He denies nausea or vomiting. Potassium 3.4, BUN 8, creatinine 1.1, phosphorus 3, magnesium 2.3, white blood count 6.4, hemoglobin 14.8, hematocrit 43.9. Discussed with clinical staff the need for discharge home. They discussed that with the patient. The plan is to put all of her needs in place with goal of discharge in the morning. Constitutional Vitals: Vital Signs Temp Pulse Resp BP Pulse Ox 98.3 F 69 18 117/63 98 04/03/21 12:00 04/03/21 12:00 04/03/21 12:00 04/03/21 12:00 04/03/21 12:00 Period Temp Pulse Resp BP Sys/Gerardo Pulse Ox Last 24 Hr 97.7 F-99 F 64-78 16-20 111-135/60-73 94-99 Intake and Output 04/02/21 04/03/21 04/03/21 21:59 05:59 13:59 Intake Total 1899.0909 1159.0909 290 Output Total 350 700 450 Balance 1549.0909 459.0909 -160 Weight 177 lb 8 oz Intake & Output: Intake & Output 04/02/21 04/03/21 04/03/21 21:59 05:59 13:59 Intake Total 1899.0909 1159.0909 290 Output Total 350 700 450 Balance 1549.0909 459.0909 -160 Weight 177 lb 8 oz Intake: IV 1659.0909 559.0909 50 Sodium Chloride 0.9% 1,000 ml @ 1000 100 mls/hr IV .Q10H JENNIFER Rx#: [id number] Zosyn 3.375 gm In Dextrose 5% 50 50 50 in Water 50 ml @ 100 mls/hr IV Q6H JENNIFER Rx#:[id number] Potassium Phosphate 40 Meq In 509.0909 509.0909 Dextrose 5% in Water 500 ml @ 127.273 mls/hr IV Q4H JENNIFER Rx#: [id number] Oral 240 600 240 Output: Void Amount 350 700 450 Other: Meal Lunch Lunch Percent of Meal Consumed 100% 100% Feeding Ability Assist with Tray Set Up Urine Appearance Clear Clear Urine Color Bright Yellow Bright Yellow Straw Urine Odor Normal Normal Stool Size Small Moderate Stool Color Brown Brown Stool Consistency Soft Soft Formed # Bowel Movements 1 1 Head Head exam: Present atraumatic, normal inspection and normocephalic Eye Eye exam: Present EOMI Pupils: Present normal accommodation and PERRL ENT ENT exam: Present mucous membranes moist and normal oropharynx Respiratory Respiratory exam: Present normal respiratory exam and CTAB; Absent rales, rhonchi and wheezes Cardiovascular Cardiovascular exam: Present normal rate and rhythm, RRR, +S1 and +S2; Absent JVD GI/Abdominal GI/Abdominal exam: Present normal bowel sounds and soft; Absent distended, guarding and tenderness Additional comments: Abdominal exam is totally benign; he has good active bowel sounds and no distention. His abdomen is actually scaphoid and is soft and pliable without any distention or tenderness in any portion of the abdomen. There is no mass felt. Extremities Exam Extremities exam: Present full ROM and neurovascular intact Back Exam Back exam: Present normal inspection Neurological Exam Neurological exam: Present alert and oriented X3 Psychiatric Psychiatric exam: Present normal affect and normal mood Skin Skin exam: Present intact and warm A/P Assessment and plan (1) SBO (small bowel obstruction): Status: Acute (2) Chronic atrial fibrillation: Status: Acute (3) Pneumatosis intestinalis: Status: Acute Narrative A/P Narrative: Saline lock IV Small bowel follow-through to confirm that GI tract is patent Probable discharge tomorrow Time Spent With Patient Time: Total time spent is greater than 50% in coordination of care (as documented) at patient's floor/unit and/or counseling patient:
[2021-04-03] MEDS: METOCLOPRAMIDE 10 MG/2 ML VIAL IV SCH ×3 (14:07→23:34)
[2021-04-03] MEDS ORDERED: DIATRIZOATE MEGLU/DIATRIZO SOD 30 ML BOTTLE PO ONE (16:28)
--- NOTE | 2021-04-03 17:27 | XRay Report ---
CLINICAL INFORMATION: evaluate partial small bowel obstruction COMPARISON: Abdominal plain film 04/03/2021 TECHNIQUE: Following electrical technician film water-soluble contrast was administered orally and serial imaging was obtained over the abdomen and pelvis for a total duration of two hours 15 minutes FINDINGS: The stomach, duodenum and proximal jejunum are mildly dilated. In the mid jejunum, in region of adhesions or stricture, there is subtle caliber change in the distal small bowel being slightly decreased caliber. IMPRESSION: Improving mid jejunal obstruction likely related to adhesions or stricture. Small transit time is moderately delayed: approximately 1.5 hours Interpreted and Authenticated by: Henrik Mohamud 04/03/21
[2021-04-03] MEDS: SENNOSIDES 1 TABLET PO SCH (20:14)
[2021-04-04] MEDS: METOCLOPRAMIDE 10 MG/2 ML VIAL IV SCH ×2 (05:21→13:57)
[2021-04-04] MEDS: 0.9 % SODIUM CHLORIDE 10 ML SYRINGE IV SCH ×2 (05:22→13:57)
[2021-04-04 08:00] LABS: ALT/SGPT 7 U/L (<40); AST/SGOT 18 U/L (<40); Albumin/Globulin Ratio 1.5 (1.0-2.3); Alkaline Phosphatase 51 U/L (39-117); Bilirubin,Direct < 0.2 mg/dL (0-0.3); Bilirubin,Total 0.4 mg/dL (0.1-1.0); Blood Urea Nitrogen 8 mg/dL (8-23); Carbon Dioxide 28 mmol/L (22-30); Chloride 106 mmol/L (96-108); Glomerular Filtration Rate 67; Glucose 95 mg/dL (70-105); Lactate Dehydrogenase 322 U/L (135-225); Phosphorous 2.7 mg/dL (2.5-4.5); Triglycerides 96 mg/dL (<150); Uric Acid 3.2 mg/dL (2.5-8.0)
[2021-04-04] MEDS: DOCUSATE SODIUM 100 MG CAPSULE PO SCH (10:44)
[2021-04-04] MEDS: 0.9 % SODIUM CHLORIDE 1,000 ML IV SCH (10:44)
[2021-04-04 12:35] LABS: Hematocrit 31.7 % (41.0-55.0); Mean Cell Volume 86.4 fL (80.0-100.0); Mean Corpuscular HGB Conc 31.5 g/dL (31.0-36.0); Platelet Count 72 K/mcL (140-440); RBC 3.67 M/mcL (4.50-5.90); Red Cell Distribution Width 16.4 % (11.5-14.5); WBC 24.7 K/mcL (4.5-11.0)
--- NOTE | 2021-04-04 12:44 | XRay Report ---
CLINICAL INFORMATION: final f/u of sbft from yesterday COMPARISON: None. FINDINGS: Enteric contrast, from the small bowel follow-through study, is scattered throughout the colon. Stomach and small bowel loops in the left upper quadrant are mildly dilated with relative decompression in the distal small bowel and colon. Findings compatible with mild partial small bowel obstruction. It has improved. No free air. IMPRESSION: Near-complete resolution in mid jejunal bowel obstruction Interpreted and Authenticated by: Henrik Mohamud 04/04/21
--- NOTE | 2021-04-04 12:51 | Discharge Summary ---
Discharge Provider Provider Patient information: Note initiated : 04/04/21 at 12:42 pm Service Date, if different from initiated Date: [] Patient: George Valdovinos 89 y/o M admitted on 03/30/21 for n/v. Chief Complaint: [] Date of admission: 03/30/21 00:56 Discharge date: 04/04/21 Primary care physician: Lynne Canales Admitting clinician: Yogesh Garnica Attending physician on admission: Yogesh Garnica Consults: 03/30/21 Consult to Physician [CONS] Stat Comment: Consulting Provider: Yogesh Garnica Reason For Exam: Physician to Consult Attending physician on discharge: Yogesh Garnica Discharging clinician: Yogesh Garnica COURSE Hospital Course Hospital course: 89-year-old male admitted with history of acute onset of mid abdominal pain with some distention followed by nausea and vomiting. The patient has a history of multiple intraperitoneal procedures in the past including appendectomy cholecystectomy laparotomy. He was seen in the emergency room where abdominal x-rays and CT suggests mid gut obstruction with pneumatosis intestinalis. Patient gives a history though that he has had flatus and passed regular bowel movement the day before presenting to the ER. He had mild elevation in his white blood count but was afebrile. He was admitted and started on nasogastric suction. He had output of over 3000 cc of fluid and became much improved. He pulled out his nasogastric tube and was allowed to leave without. He had more output over the next day and was started on clear liquids. He tolerated that well the amount of intestinal gas improved and it showed transit of the gas into the colon. Small bowel follow-through was done yesterday and he had a complete transit time of 1.5hours. He has had extensive bowel movements since then and has a totally benign abdomen. He is tolerating regular diet without difficulty and is stable for discharge. Discharge diagnosis: Partial small bowel obstruction Secondary discharge diagnosis: Pneumatosis intestinalis Reason for admission: Small bowel obstruction Procedures: None Pertinent studies/significant findings: CT of abdomen and pelvis with IV con trast Gastrografin small bowel follow-through Complications: None Time Spent with Patient Time attestation: Total time spent providing and/or coordinating discharge services: Physical Examination Vital Signs Vital signs: Temp Pulse Resp BP Pulse Ox 97.9 F 69 18 128/66 97 04/04/21 06:52 04/04/21 06:52 04/04/21 06:52 04/04/21 06:52 04/04/21 06:52 General physical appearance General physical exam: well developed, well nourished, no distress and no pain Eyes Eye exam: PERRL and normal ocular movement ENT ENT exam: decreased hearing and poor shelter Head Head exam IM: Present atraumatic, normal inspection and normocephalic Neck Neck exam: no masses, no bruits, trachea midline, no lymphadenopathy and no venous distension Cardiovascular Cardiovascular exam IM: Present normal rate and rhythm, irregular rhythm, +S1, +S2 and tachycardia; Absent JVD Respiratory Respiratory exam: normal expansion, normal respiratory effort and clear to auscultation Abdomen Abdomen: Present tender and bowel sounds (Active bowel sounds) Integumentary Integumentary: Present other (Bruises of upper extremities) Neurologic Neurologic: Present normal coordination and normal sensation Musculoskeletal Musculoskeletal: Present other (Altered gait due to weakness) Psychiatric Psychiatric: Present oriented to time, oriented to person, speech is normal and memory intact (Altered memory); Absent oriented to place Discharge Plan Patient/Caregiver Discharge Instructions Activity: increase activity as tolerated Diet: Low Fiber Prescriptions: Continued vitamin B complex [B Complex-Vitamin B12] Tablet 1 tab PO QDAY RF: 0 donepezil [Aricept] 10 mg Tablet 10 mg PO QDAY RF: 0 iron-vitamin B complex with C Tablet 1 tab PO DAILY RF: 0 memantine [Namenda] 10 mg Tablet 10 mg PO BID RF: 0 tramadol [Ultram] 50 mg Tablet 50 mg PO DAILY PRN (Reason: Pain) RF: 0 acetaminophen [Tylenol] 325 mg Tablet 650 mg PO DAILY PRN (Reason: Pain) RF: 0 warfarin 1 mg Tablet 7 mg PO 2-3XW PRN (Reason: No) RF: 0 warfarin 6 mg Tablet See Rx Instructions .ROUTE .COMPLEX RF: 0 levothyroxine 50 mcg Tablet 50 mcg PO QDAY RF: 0 acalabrutinib 100 mg Capsule 100 mg PO DAILY RF: 0 Follow Up Plan Follow up with: Lynne Canales MD [Primary Care Provider] - Yogesh Garnica MD [Physician] - 04/13/21 Patient Disposition: Home, Self-Care Rehab Potential: Good I certify that the patient requires SNF services: No Overall status at discharge: patient is back to baseline Discharge Orders: Discharge Order (Routine); Ordered 04/04/21 Ordered By: Yogesh Garnica Pending Pending Pending: Resuscitation Status Do Not Resuscitate Diet GI Soft/Transitional Start SatApril 02 130 Docusate Sodium (Docusate Sodium 100 Mg Capsule) 100 mg PO BID [facility] Admin: 04/04/21 10:44 Dose: Not Given Documented by: Admin: 04/03/21 20:14 Dose: Not Given Documented by: Admin: 04/03/21 08:20 Dose: Not Given Documented by: Admin: 04/02/21 20:24 Dose: 100 mg Documented by: Admin: 04/02/21 07:49 Dose: Not Given Documented by: JUAN ANTONIO Admin: 04/01/21 20:33 Dose: Not Given Documented by: Admin: 04/01/21 07:48 Dose: 100 mg Documented by: Admin: 03/31/21 21:13 Dose: 100 mg Documented by: Admin: 03/31/21 08:21 Dose: Not Given Documented by: Admin: 03/30/21 21:37 Dose: Not Given Documented by: Admin: 03/30/21 07:43 Dose: Not Given Documented by: ELIDIA Hydromorphone HCl (Hydromorphone 0.5 Mg/0.5 Ml Syringe) 0.5 mg IV Q2HP PRN; Protocol PRN Reason: Per Pain Protocol Last Admin: 03/30/21 03:28 Dose: 0.5 mg Documented by: ABHIJIT Sodium Chloride (Sodium Chloride 0.9%) 1,000 mls @ 100 mls/hr IV .Q10H [facility] Admin: 04/04/21 10:44 Dose: Not Given Documented by: Admin: 04/03/21 23:34 Dose: Not Given Documented by: Admin: 04/03/21 14:51 Dose: Not Given Documented by: Infusion: 04/03/21 14:48 Dose: 0 mls/hr Documented by: Admin: 04/03/21 03:15 Dose: 100 mls/hr Documented by: Infusion: 04/02/21 18:00 Dose: 100 mls/hr Documented by: Admin: 04/02/21 17:30 Dose: Not Given Documented by: JUAN ANTONIO Admin: 04/02/21 07:49 Dose: Not Given Documented by: JUAN ANTONIO Admin: 04/01/21 23:45 Dose: 100 mls/hr Documented by: Infusion: 04/01/21 23:45 Dose: 100 mls/hr Documented by: Admin: 04/01/21 14:26 Dose: 100 mls/hr Documented by: Infusion: 04/01/21 12:58 Dose: 100 mls/hr Documented by: Admin: 04/01/21 02:58 Dose: 100 mls/hr Documented by: Infusion: 04/01/21 01:57 Dose: 100 mls/hr Documented by: Admin: 03/31/21 15:57 Dose: 100 mls/hr Documented by: Infusion: 03/31/21 14:25 Dose: 100 mls/hr Documented by: Admin: 03/31/21 08:21 Dose: Not Given Documented by: Admin: 03/31/21 04:25 Dose: 100 mls/hr Documented by: Infusion: 03/30/21 22:02 Dose: 100 mls/hr Documented by: Admin: 03/30/21 12:02 Dose: 100 mls/hr Documented by: Infusion: 03/30/21 11:00 Dose: 100 mls/hr Documented by: Admin: 03/30/21 01:00 Dose: 100 mls/hr Documented by: ABHIJIT Acetaminophen (Ofirmev) 1,000 mg in 100 mls @ 200 mls/hr IV Q6HP PRN; Protocol PRN Reason: Per Pain Protocol/Fever > 101 Last Infusion: 03/30/21 22:40 Dose: 0 mls/hr Documented by: Admin: 03/30/21 22:09 Dose: 200 mls/hr Documented by: WILLIAM Metoclopramide HCl (Metoclopramide 10 Mg/2 Ml Vial) 5 mg IV Q6 JENNIFER Last Admin: 04/04/21 05:21 Dose: Not Given Documented by: Admin: 04/03/21 23:34 Dose: Not Given Documented by: Admin: 04/03/21 17:48 Dose: 5 mg Documented by: Admin: 04/03/21 14:07 Dose: 5 mg Documented by: CARSON Ondansetron HCl (Ondansetron 4 Mg/2 Ml Vial) 4 mg IV Q6HP PRN PRN Reason: Nausea And Vomiting Last Admin: 03/30/21 03:28 Dose: 4 mg Documented by: ABHIJIT Promethazine HCl (Promethazine 25 Mg/Ml Vial) 12.5 mg IV Q4HP PRN; Protocol PRN Reason: Nausea/Vomiting Last Admin: 03/30/21 08:34 Dose: 12.5 mg Documented by: ELIDIA Senanya (Sennosides 1 Tablet) 2 tab PO HS [facility] Last Admin: 04/03/21 20:14 Dose: Not Given Documented by: Admin: 04/02/21 20:24 Dose: 2 tab Documented by: Admin: 04/01/21 20:33 Dose: Not Given Documented by: Admin: 03/31/21 21:13 Dose: 2 tab Documented by: Admin: 03/30/21 21:37 Dose: Not Given Documented by: WILLIAM Sodium Chloride (0.9 % Sodium Chloride 10 Ml Syringe) 10 ml IV Q8 JENNIFER Last Admin: 04/04/21 05:22 Dose: Not Given Documented by: Admin: 04/03/21 22:05 Dose: Not Given Documented by: Admin: 04/03/21 14:06 Dose: 10 ml Documented by: Admin: 04/03/21 05:57 Dose: Not Given Documented by: Admin: 04/02/21 20:19 Dose: Not Given Documented by: Admin: 04/02/21 13:54 Dose: Not Given Documented by: JUAN ANTONIO Admin: 04/02/21 04:11 Dose: Not Given Documented by: Admin: 04/01/21 20:33 Dose: Not Given Documented by: Admin: 04/01/21 12:23 Dose: Not Given Documented by: Admin: 04/01/21 05:39 Dose: Not Given Documented by: Admin: 03/31/21 21:13 Dose: Not Given Documented by: Admin: 03/31/21 12:43 Dose: Not Given Documented by: Admin: 03/31/21 05:47 Dose: Not Given Documented by: Admin: 03/30/21 21:37 Dose: Not Given Documented by: Admin: 03/30/21 14:46 Dose: Not Given Documented by: Admin: 03/30/21 05:13 Dose: Not Given Documented by: ABHIJIT Shift Summary 04/04/21 04:00 Shift Summary by Chasity Biggs Diagnosis: Small Bowel Obstruction, Pneumatosis Intestinalis Brief history of present illness: N/V/D, History Diverticulitis, History TURP and Urinary Retention, Receiving PO Chemo for CLL. Orientation: Alert and Oriented Times Four, Uses Call Light Appropriately VS/Labs: VSS, Afebrile, RA, K+ 3.4 yesterday. Ambulation: Neuropathy bilateral feet, up with 1 SBA Restroom and FWW in Hallway Toileting: Frequent diarrhea post small bowel follow through yesterday, pull-up briefs for functional incontinence BM and voids via urinal. IV: IV D/Cd last evening MD aware and permission to leave out per patient request and D/C anticipated. Pain: Denies 0/10 Skin/Wounds: Scattered areas bruising/petechia to lower legs/forearms due to low platelet count and history leukemia, skin is intact otherwise and denies rectal irritation with frequent stools. Discharge Plans: Discharge to home with spouse, no concerns reported by patient or needs at this time. Additional Comments: Tolerating a GI Soft diet well, denies nausea, anticipated discharge to home today. Will update shift summary report to oncoming RN at bedside. Initialized on 04/04/21 04:00 - END OF NOTE
== END 2021-04-04 14:20 | disposition home or self-care (01) | DRG 389 ==
LOC: ED 22:38 → MEDSUR 03-30 00:55
PROVIDERS: ADMIT Family Medicine Adult Medicine; ATTEND Family Medicine Adult Medicine